=== PATIENT | male | born 1945 | race Caucasian/White ===

== ENCOUNTER → 2020-04-09 09:43 | Outpatient (BNVA) | payer MEDICARE, OTHER, SELFPAY | PROVIDERS: Family Provider Family Medicine; PCP Physician Assistant; Visit Provider Urology | DX: R97.20 Elevated prostate specific antigen [PSA] (principal); N40.1 Benign prostatic hyperplasia with lower urinary tract symptoms; N20.9 Urinary calculus, unspecified | CPT/HCPCS: 81001; 84153 ==

== ENCOUNTER → 2020-10-14 14:00 | Outpatient (BNVA) | payer MEDICARE, OTHER, SELFPAY | PROVIDERS: PCP Physician Assistant; Visit Provider Urology | DX: N40.1 Benign prostatic hyperplasia with lower urinary tract symptoms (principal); N20.9 Urinary calculus, unspecified; R97.20 Elevated prostate specific antigen [PSA] | CPT/HCPCS: 81003 ==

== ENCOUNTER 2020-11-12 09:11 | Outpatient (CLI) | payer MEDICARE, OTHER, SELFPAY ==
[2020-11-12 09:12] VITALS: BP 155/76; PULSE 64; RESP 17; TEMP 36.6; O2SAT 94; BMI 30.2
--- NOTE | 2020-11-12 09:30 | A.OFFVIS_ITS ---
Patient Information [facility] COVID test results: No Data to Display Criteria/Plan Inclusion/Exclusion Criteria weight >/= 40kg age >/= 65 not requiring hospitalization and not requiring oxygen (if not chronically on oxygen) Patient education patient/caregiver received/reviewed fact sheet, Emergency Use Authorization/unapproved drug status discussed with patient/caregiver, alternatives to this treatment discussed with patient/caregiver, risks and benef its of medication reviewed with patient/caregiver, patient/caregiver given opportunity for questions, which were answered and patient/caregiver consents to receiving Monoclonal Antibody Treatment Plan for treatment Meets criteria for Monoclonal Antibody infusion Ordering Monoclonal Antibody infusion for today
[2020-11-12 10:30] VITALS: BP 134/60; PULSE 53; RESP 17; TEMP 36.6; O2SAT 94
[2020-11-12 10:56] VITALS: BP 128/63; PULSE 49; RESP 17; TEMP 36; O2SAT 94
[2020-11-12 11:26] VITALS: BP 141/72; PULSE 47; RESP 17; TEMP 36.1; O2SAT 96
[2020-11-12 12:24] VITALS: BP 137/69; PULSE 44; RESP 16; O2SAT 95
[2020-11-12 12:25] VITALS: BP 137/69; PULSE 44; RESP 16; TEMP 36.1; O2SAT 95
== END 2020-11-12 12:25 | disposition home or self-care (01) ==
LOC: OPS 09:11
PROVIDERS: PCP Physician Assistant; Visit Provider Physician Assistant
DX: U07.1 COVID-19 (principal)
CPT/HCPCS: 96365

== ENCOUNTER → 2021-04-15 13:15 | Outpatient (BNVA) | payer MEDICARE, OTHER, SELFPAY | PROVIDERS: PCP Physician Assistant; Visit Provider Urology | DX: R97.20 Elevated prostate specific antigen [PSA] (principal); N40.1 Benign prostatic hyperplasia with lower urinary tract symptoms; N20.9 Urinary calculus, unspecified | CPT/HCPCS: 81003; 84153 ==

== ENCOUNTER 2022-04-15 09:29 | Outpatient (CLI) | payer MEDICARE, SELFPAY ==
[2022-04-15 11:02] LABS: Prostate Specific Antigen 3.07 ng/mL (0-4)
== END 2022-04-15 09:30 | disposition home or self-care (01) ==
PROVIDERS: PCP Physician Assistant; Visit Provider Urology
DX: N40.1 Benign prostatic hyperplasia with lower urinary tract symptoms (principal); R97.20 Elevated prostate specific antigen [PSA]
CPT/HCPCS: 51741; 51798; 81003; 84153; 99213

== ENCOUNTER → 2023-01-24 13:46 | Outpatient (BNVA) | payer MEDICARE, OTHER, SELFPAY | PROVIDERS: PCP Physician Assistant; Visit Provider Podiatrist Foot & Ankle Surgery | DX: Q82.8 Other specified congenital malformations of skin (principal) | CPT/HCPCS: 99203 ==

== ENCOUNTER → 2023-03-07 14:05 | Outpatient (BNVA) | payer MEDICARE, OTHER, SELFPAY | PROVIDERS: PCP Physician Assistant; Visit Provider Podiatrist Foot & Ankle Surgery | DX: Q82.8 Other specified congenital malformations of skin (principal); L84 Corns and callosities; M21.621 Bunionette of right foot; M21.622 Bunionette of left foot | CPT/HCPCS: 99213 ==

== ENCOUNTER 2023-04-07 09:45 | Outpatient (CLI) | payer MEDICARE, OTHER, SELFPAY ==
[2023-04-07 10:34] LABS: Prostate Specific AG Urology 2.71 ng/mL (0-4)
== END 2023-04-07 09:46 | disposition home or self-care (01) ==
LOC: LAB 09:50
PROVIDERS: PCP Physician Assistant; Visit Provider Urology
DX: R97.20 Elevated prostate specific antigen [PSA] (principal)
CPT/HCPCS: 36415; 84153

== ENCOUNTER → 2023-04-14 10:44 | Outpatient (BNVA) | payer MEDICARE, OTHER, SELFPAY | PROVIDERS: PCP Physician Assistant; Visit Provider Urology | DX: N40.1 Benign prostatic hyperplasia with lower urinary tract symptoms (principal); R97.20 Elevated prostate specific antigen [PSA]; N20.9 Urinary calculus, unspecified | CPT/HCPCS: 81003; 99213 ==